=== PATIENT | male | born 1970 | race Caucasian/White ===

== ENCOUNTER 2017-08-28 14:13 | Emergency (ER) | payer OTHER ==
[~2017-08-28] VITALS: Ht 170.2 cm; Wt 74.5 kg
[~2017-08-28 14:13] MED LIST: ASPI-COR81 M3 PO; CARTIA XT180 MG PO; CEL250; LOSARTAN POTASS50 M1 PO; MYCOPHENOLIC A180 MG PO; NIFEDICAL XL30 MG PO; PANTOPRAZOLE SO40 M1 PO; PHE25I PO; PREDNISONE2.5 MG; PRO30 PO; SENSIPAR30 M1 PO; TACROLIMUS
[2017-08-28 14:25] VITALS: Ht 170.2 cm; Wt 74.5 kg
[2017-08-28 16:39] VITALS: BP 154/85
== END 2017-08-28 16:56 | disposition home or self-care (01) ==
LOC: ED 14:13
DX: S80.12XA Contusion of left lower leg, initial encounter (principal); S80.02XA Contusion of left knee, initial encounter; I10 Essential (primary) hypertension; Z88.5 Allergy status to narcotic agent; X58.XXXA Exposure to other specified factors, initial encounter; Y93.89 Activity, other specified; Y92.89 Other specified places as the place of occurrence of the external cause; Y99.8 Other external cause status
CPT/HCPCS: J2001; Q0092

== ENCOUNTER 2017-10-04 12:09 | Emergency (ER) | payer OTHER ==
[~2017-10-04] VITALS: Ht 175.3 cm; Wt 70.8 kg
[2017-10-04 12:18] VITALS: Ht 175.3 cm; Wt 70.8 kg
[2017-10-04 15:04] LABS: PLATELET COUNT 216 x10^3mcL (130-400); RED CELL DISTRIBUTION WIDTH 14.3 % (11.5-14.5)
[2017-10-04 15:12] LABS: BASOPHIL % 0 % (0-2); CALCIUM 8.9 mg/dL (8.5-10.1); CARBON DIOXIDE 15.8 mmol/L (21-32); CREATININE SERUM 1.8 mg/dL (0.7-1.3); POTASSIUM SERUM 4.7 mmol/L (3.5-5.1)
[2017-10-04 15:18] LABS: ALBUMIN 3.7 g/dL (3.4-5.0); BILIRUBIN TOTAL 0.3 mg/dL (0.20-1.00); TOTAL PROTEIN, SERUM 8.1 g/dL (6.4-8.2)
[2017-10-04 16:55] VITALS: BP 121/77
== END 2017-10-04 16:56 | disposition home or self-care (01) ==
LOC: ED 12:09
PROVIDERS: Emergency Medicine
DX: D64.9 Anemia, unspecified (principal); E87.2 Acidosis; I10 Essential (primary) hypertension; Z88.5 Allergy status to narcotic agent
CPT/HCPCS: J7030

== ENCOUNTER 2018-01-03 11:30 | Emergency (ER) | payer OTHER ==
[~2018-01-03] VITALS: Ht 175.3 cm; Wt 75.9 kg
[~2018-01-03 11:30] MED LIST changes: +ALDACTONE50 MG PO; +AMBIEN10 MG PO; -ASPI-COR81 M3 PO; +ASPIR 8181 MG PO; +CARTIA XT180 M1 PO; -CARTIA XT180 MG PO; +CEL250 PO; +CLONIDINE HCL0.1 MG; +CLONIDINE HCL0.1 MG PO; +ENVARSUS XR PO; +HYDRALAZINE HCL25 MG; +HYDRALAZINE HCL25 MG PO; +L40 PO; +LEVAQUIN250 M1 PO; +LIPI20 PO; +PREDNISONE2.5 MG PO; +PROGRAF1 MG PO; -TACROLIMUS; +VALCYTE450 MG PO; +ZORTRESS0.5 MG PO
[2018-01-03 13:01] LABS: microscopic required? YES; urine erythrocyte TRACE (NEGATIVE)
[2018-01-03 13:07] LABS: BASOPHIL % 0.3 % (0-2); PLATELET COUNT 300 x10^3mcL (130-400)
[2018-01-03 13:08] LABS: RED CELL DISTRIBUTION WIDTH 14.7 % (11.5-14.5)
[2018-01-03 13:25] LABS: BILIRUBIN TOTAL 0.6 mg/dL (0.20-1.00); CALCIUM 9.6 mg/dL (8.5-10.1); CARBON DIOXIDE 28.8 mmol/L (21-32); POTASSIUM SERUM 3.8 mmol/L (3.5-5.1); TOTAL PROTEIN, SERUM 7.8 g/dL (6.4-8.2)
[2018-01-03 13:28] LABS: ALBUMIN 2.8 g/dL (3.4-5.0)
[2018-01-03 13:29] LABS: CREATININE SERUM 4.8 mg/dL (0.7-1.3)
[2018-01-03 14:30] VITALS: BP 134/75
== END 2018-01-03 14:30 | disposition home or self-care (01) ==
LOC: ED 11:30
PROVIDERS: Emergency Medicine
DX: N39.0 Urinary tract infection, site not specified (principal); I12.9 Hypertensive chronic kidney disease with stage 1 through stage 4 chronic kidney disease, or unspecified chronic kidney disease; N18.9 Chronic kidney disease, unspecified; Z88.0 Allergy status to penicillin; Z88.5 Allergy status to narcotic agent
CPT/HCPCS: 36415; 83880; Q0092

== ENCOUNTER 2018-01-06 10:22 | Observation (INO) | payer OTHER ==
[~2018-01-06] VITALS: Ht 175.3 cm; Wt 75.3 kg
[2018-01-06 10:25] VITALS: Ht 175.3 cm; Wt 75.3 kg
[2018-01-06 11:44] LABS: BASOPHIL % 0.1 % (0-2); PLATELET COUNT 347 x10^3mcL (130-400); RED CELL DISTRIBUTION WIDTH 14.1 % (11.5-14.5)
[2018-01-06 12:11] LABS: microscopic required? YES; urine erythrocyte TRACE (NEGATIVE)
[2018-01-06 12:15] LABS: BILIRUBIN TOTAL 0.39 mg/dL (0.20-1.00); CARBON DIOXIDE 26.8 mmol/L (21-32); POTASSIUM SERUM 3.4 mmol/L (3.5-5.1); TOTAL PROTEIN, SERUM 7.6 g/dL (6.4-8.2)
[2018-01-06 12:30] LABS: ALBUMIN 2.7 g/dL (3.4-5.0)
[2018-01-06 13:57] VITALS: BP 132/72
[2018-01-06 14:33] LABS: MAGNESIUM 2.2 mg/dL (1.8-2.4); PHOSPHOROUS 4.9 mg/dL (2.5-4.9)
[2018-01-06 14:37] LABS: CHOLESTEROL/HDL RATIO 8.7
[2018-01-06 17:40] VITALS: BP 140/85
[2018-01-06 20:38] VITALS: BP 140/82
[2018-01-07 05:58] VITALS: BP 127/79
[2018-01-07 06:55] LABS: CALCIUM 9.4 mg/dL (8.5-10.1); CARBON DIOXIDE 25.3 mmol/L (21-32); CHOLESTEROL/HDL RATIO 8.6; MAGNESIUM 2.2 mg/dL (1.8-2.4); POTASSIUM SERUM 3.8 mmol/L (3.5-5.1)
[2018-01-07 06:56] LABS: CREATININE SERUM 6.3 mg/dL (0.7-1.3)
[2018-01-07 07:47] LABS: BASOPHIL % 0.3 % (0-2); PLATELET COUNT 263 x10^3mcL (130-400)
[2018-01-07 08:30] VITALS: BP 125/83
[2018-01-07] MEDS ORDERED: LEVAQUIN500 M1 PO (09:29)
[2018-01-07] MEDS ORDERED: BD LACTINEX1.4 MG PO (09:29)
[2018-01-07 10:10] VITALS: BP 125/83
== END 2018-01-07 11:02 | disposition home or self-care (01) | DRG 682 ==
LOC: ED 10:22 → DU 12:40
PROVIDERS: Emergency Medicine; Family Medicine
DX: N17.0 Acute kidney failure with tubular necrosis (principal); E43 Unspecified severe protein-calorie malnutrition; Z94.0 Kidney transplant status; N39.0 Urinary tract infection, site not specified; E87.1 Hypo-osmolality and hyponatremia; J98.11 Atelectasis; C85.10 Unspecified B-cell lymphoma, unspecified site; E87.6 Hypokalemia; D63.0 Anemia in neoplastic disease; K21.9 Gastro-esophageal reflux disease without esophagitis; G47.00 Insomnia, unspecified; R31.9 Hematuria, unspecified; I34.0 Nonrheumatic mitral (valve) insufficiency; I36.1 Nonrheumatic tricuspid (valve) insufficiency; Z79.82 Long term (current) use of aspirin; Z68.24 Body mass index [BMI] 24.0-24.9, adult
CPT/HCPCS: 83880; 94150; G0378; J1956; J3490; J7030; J7050; J7507; J7512; Q0092

== ENCOUNTER 2018-09-20 22:45 | Emergency (ER) | payer OTHER ==
[~2018-09-20] VITALS: Ht 175.3 cm; Wt 67.6 kg
[~2018-09-20 22:45] MED LIST changes: +BD LACTINEX1.4 MG PO; +LEVAQUIN500 M1 PO
[2018-09-20 22:56] VITALS: Ht 175.3 cm; Wt 67.6 kg
[2018-09-20 23:57] VITALS: BP 155/90
== END 2018-09-20 23:57 | disposition home or self-care (01) ==
LOC: ED 22:45
DX: I10 Essential (primary) hypertension (principal); J06.9 Acute upper respiratory infection, unspecified; N18.6 End stage renal disease; Z88.5 Allergy status to narcotic agent; Z94.0 Kidney transplant status; Z98.890 Other specified postprocedural states
CPT/HCPCS: Q0092

== ENCOUNTER 2020-05-18 00:45 | Emergency (ER) | payer OTHER, SELFPAY ==
[~2020-05-18] VITALS: Ht 175.3 cm; Wt 79.8 kg
[2020-05-18 00:49] VITALS: Ht 175.3 cm; Wt 79.8 kg
[2020-05-18 02:09] LABS: PLATELET COUNT 91 x10^3mcL (130-400); RED CELL DISTRIBUTION WIDTH 15.7 % (11.5-14.5)
[2020-05-18] MEDS ORDERED: REVLIMID2.5 MG (02:13)
[2020-05-18] MEDS ORDERED: ASPIRIN CHILDRE81 MG (02:13)
[2020-05-18] MEDS ORDERED: AMBIEN5 MG (02:13)
[2020-05-18] MEDS ORDERED: SENSIPAR30 M1 (02:13)
[2020-05-18] MEDS ORDERED: PROTONIX20 MG (02:13)
[2020-05-18] MEDS ORDERED: DECADRON0.5 MG PO (02:14)
[2020-05-18 02:17] LABS: ALBUMIN 3.1 g/dL (3.4-5.0); BILIRUBIN TOTAL 1.15 mg/dL (0.20-1.00); CALCIUM 8.4 mg/dL (8.5-10.1); POTASSIUM SERUM 4.1 mmol/L (3.5-5.1); TOTAL PROTEIN, SERUM 6.8 g/dL (6.4-8.2)
[2020-05-18 02:18] LABS: CREATININE SERUM 9.3 mg/dL (0.7-1.3)
[2020-05-18 02:25] LABS: BAND NEUTROPHIL 4 % (0-10); MONOCYTE 16 % (0-7); SEGMENTED NEUTROPHILS 42 % (37-75); rbc morphology (normal/abnorm) ABNORMAL (NORMAL); tear drop cell (dacryocyte) 1+
[2020-05-18 02:26] LABS: PLATELET MORPHOLOGY PLATELETS DECREASED
[2020-05-18 10:15] VITALS: BP 125/91
== END 2020-05-18 10:15 | disposition short-term general hospital (02) ==
LOC: ED 00:45
PROVIDERS: Student in an Organized Health Care Education/Training Program
DX: U07.1 COVID-19 (principal); R42 Dizziness and giddiness; D64.9 Anemia, unspecified
CPT/HCPCS: J0780; J7040; Q0092; Q0163